=== PATIENT | male | born 1990 ===

== ENCOUNTER 2021-10-06 15:22 | Emergency (ER) | payer OTHER ==
[~2021-10-06] VITALS: Ht 175.3 cm; Wt 100.0 kg
[2021-10-06] MEDS ORDERED: IBUP-2071 PO (18:22)
[2021-10-06 18:30] VITALS: BP 122/80
== END 2021-10-06 18:50 | disposition home or self-care (01) ==
LOC: EMS 15:38
DX: S13.4XXA Sprain of ligaments of cervical spine, initial encounter (principal); S00.03XA Contusion of scalp, initial encounter; V43.52XA Car driver injured in collision with other type car in traffic accident, initial encounter; Y93.I9 Activity, other involving external motion; Y92.411 Interstate highway as the place of occurrence of the external cause; Y99.8 Other external cause status
CPT/HCPCS: 99282; Z7502